=== PATIENT | male | born 1985 | race Caucasian/White ===

== ENCOUNTER 2017-06-17 00:43 | Emergency (ER) | payer BC, SELFPAY ==
[~2017-06-17] VITALS: Ht 177.8 cm; Wt 80.1 kg
[2017-06-17 00:43] VITALS: BP 138/89
[2017-06-17] MEDS ORDERED: LIDOCAINE 1%, 20ML ONE (00:59)
[2017-06-17] MEDS ORDERED: DIPH,PERTUSS(ACELL),TET VAC/PF 0.5 ML IM-VACC ONE ×2 (01:00→01:43)
[2017-06-17] MEDS ORDERED: LIDOCAINE 1%, 20ML SQ ONE (01:00)
== END 2017-06-17 02:06 | disposition home or self-care (01) ==
LOC: ED 01:25
DX: S01.81XA Laceration without foreign body of other part of head, initial encounter (principal); S10.93XA Contusion of unspecified part of neck, initial encounter; F10.229 Alcohol dependence with intoxication, unspecified; W01.10XA Fall on same level from slipping, tripping and stumbling with subsequent striking against unspecified object, initial encounter; Y93.89 Activity, other specified; Y92.830 Public park as the place of occurrence of the external cause; Y99.8 Other external cause status
CPT/HCPCS: 12011; 90471; 90715

== ENCOUNTER 2020-09-14 10:17 | Outpatient (CLI) | payer OTHER | END 2020-09-14 23:59 | disposition home or self-care (01) | LOC: CFH 10:17 | PROVIDERS: ATTEND Nurse Practitioner | DX: S52.592A Other fractures of lower end of left radius, initial encounter for closed fracture (principal); X58.XXXA Exposure to other specified factors, initial encounter; Y93.89 Activity, other specified; Y92.89 Other specified places as the place of occurrence of the external cause; Y99.8 Other external cause status ==